=== PATIENT | female | born 1985 | race Caucasian/White ===

== ENCOUNTER 2017-04-09 09:11 | Emergency (ER) | payer OTHER ==
--- NOTE | 2017-04-09 09:42 | EDPHY ---
H & P Stated Complaint: skin lac L hand Source: Patient Exam Limitations: No limitations - Personal History LMP (Females 10-55): 8-14 Days Ago Current Tetanus/Diphtheria Vaccine: Yes Current Tetanus Diphtheria and Acellular Pertussis (TDAP): Yes - Medical/Surgical History Hx Asthma: No Hx Chronic Respiratory Disease: No Hx Diabetes: No Hx Cardiac Disease: No Hx Renal Disease: No Hx Cirrhosis: No Hx Alcoholism: No Hx HIV/AIDS: No Hx Splenectomy or Spleen Trauma: No - Social History Smoking Status: Never smoked Time Seen by Provider: 04/09/17 09:23 HPI/ROS: Chief Complaint: Left thumb laceration HPI: The patient presents to the ED with a laceration to her left thumb which occurred at work. She incised her thumb while opening a surgical instrument. She sustained a linear laceration on the pad of her left thumb. She denies any numbness or weakness. She has no immobility. The patient reports her tetanus shot is up today. REVIEW OF SYSTEMS: Neuro: no headache, numbness, weakness Musculoskeletal: as above Skin: As above (Emanuel Darling) - Physical Exam Exam: General: No acute distress Left hand: 2 cm laceration noted over the volar aspect of the distal thumb. Normal tendon function present in the 1st finger. Neuro: Sensation intact to light touch Vascular: Normal capillary refill (Emanuel Darling) Constitutional: Initial Vital Signs Temperature (C) 36.6 C 04/09/17 09:13 Heart Rate 82 04/09/17 09:13 Respiratory Rate 16 04/09/17 09:13 Blood Pressure 136/93 H 04/09/17 09:13 O2 Sat (%) 99 04/09/17 09:13 O2 Delivery Mode Room Air Allergies/Adverse Reactions: Sulfa (Sulfonamide Antibiotics) Allergy (Verified 04/09/17 09:14) Medical Decision Making Procedures: Procedure: Laceration repair. I was requested by Dr. Darling to perform wound closure I explained the indications, risks and benefits for both laceration repair and anesthetic administration. Verbal consent was obtained from the patient . The laceration on the thumb was anesthetized using 0.5% bupivicaine without epinephrine digital nerve block. After anesthetic administered the patient was observed for a period of time and had no apparent adverse effects. The wound was cleaned, prepped, draped in normal sterile fashion and explored to its base. No foreign body seen, no foreign bodies palpated. There were no deep structures involved. No tendon injury was identified. The wound was repaired with 6 simple interrupted 5 O Prolene suture. The wound repair was simple. The procedure was performed by myself. Patient has been informed that scarring will occur, although efforts have been made to minimize this. (Neida Santiago) ED Course/Re-evaluation: The patient presents to the emergency department with a linear laceration to left thumb. She is neurologically intact. There is no tendon injury present. (Emanuel Darling) Differential Diagnosis: Differential diagnosis considered includes laceration, tendon injury, vascular injury, nerve injury (Emanuel Darling) Departure - Departure Disposition: Home, Routine, Self-Care Clinical Impression: Laceration of left thumb Condition: Good Instructions: Care For Your Stitches (ED), Finger Laceration (ED) Additional Instructions: 1. Return to the emergency department in 12 days for suture removal.
[2017-04-09 10:38] VITALS: BP 118/88; PULSE 75; RESP 14; TEMP 97.7; O2SAT 100
== END 2017-04-09 10:38 | disposition home or self-care (01) ==
PROC: 0HQGXZZ Repair Left Hand Skin, External Approach (ICD-10-PCS; principal; 2017-04-09)
DX: S61.012A Laceration without foreign body of left thumb without damage to nail, initial encounter (principal); X58.XXXA Exposure to other specified factors, initial encounter; Y92.69 Other specified industrial and construction area as the place of occurrence of the external cause; Y99.0 Civilian activity done for income or pay